=== PATIENT | female | born 1940 | race Hispanic/Latino ===

== ENCOUNTER 2019-01-10 11:12 | Day surgery (SDC) | payer MEDICARE ==
[~2019-01-10 11:12] MED LIST: IOPIDINE ONE; MYDRIACYL ONE; NEOFRIN ONE
[2019-01-10] MEDS ORDERED: IOPIDINE OU ONE (11:40)
[2019-01-10] MEDS ORDERED: MYDRIACYL OU ONE (11:42)
[2019-01-10] MEDS ORDERED: NEOFRIN OU ONE (11:43)
[2019-01-10 12:07] VITALS: BP 134/55
== END 2019-01-10 12:31 | disposition home or self-care (01) ==
LOC: OR 11:12
PROVIDERS: ATTEND Ophthalmology
DX: H26.491 Other secondary cataract, right eye (principal); H26.492 Other secondary cataract, left eye; G43.909 Migraine, unspecified, not intractable, without status migrainosus; E78.00 Pure hypercholesterolemia, unspecified; I10 Essential (primary) hypertension; K21.9 Gastro-esophageal reflux disease without esophagitis; M19.90 Unspecified osteoarthritis, unspecified site; F32.9 Major depressive disorder, single episode, unspecified; Z98.890 Other specified postprocedural states; Z79.899 Other long term (current) drug therapy; Z87.891 Personal history of nicotine dependence; Z98.41 Cataract extraction status, right eye; Z98.42 Cataract extraction status, left eye; Z86.73 Personal history of transient ischemic attack (TIA), and cerebral infarction without residual deficits; Z88.8 Allergy status to other drugs, medicaments and biological substances